=== PATIENT | male | born 1995 | race Asian ===

== ENCOUNTER → 2023-08-04 12:10 | Outpatient (BNVA) | payer SELFPAY | PROVIDERS: Visit Provider Nurse Practitioner | DX: M25.561 Pain in right knee (principal); M25.361 Other instability, right knee; S86.8 Injury of other muscles and tendons at lower leg level; Y93.53 Activity, golf; X58.XXXS Exposure to other specified factors, sequela | CPT/HCPCS: 73560; 73565 ==